=== PATIENT | female | born 1930 | race Caucasian/White ===

== ENCOUNTER → 2016-08-18 | Outpatient (CLI) | payer MEDICARE ==
[~2016-08-18] MED LIST: ALBUTEROL2.5 MG/0.5 INH; ALDACTONE25 MG PO; ARMOUR THYROID60 MG PO; ARMOUR THYROID90 MG PO; ASPIRIN LO-DOSE81 MG PO; B COMPLEX1 EACH PO; BACTROBAN N1 GM/TUBE TOP; BUMEX1 MG PO; CEFTIN250 MG PO; CLARITIN10 MG PO; CLEOCIN150 MG PO; CO Q-10200 MG PO; COLACE100 MG PO; COREG 3.1253.125 MG PO; COUMADIN ** IA3 MG PO; COUMADIN 4MG **4 MG; COUMADIN3 MG PO; COZAAR50 MG PO; DAILY VITE1 EACH PO; DEMADEX20 MG PO; DURAGESIC 50MC50 MCG TRANS; ESSENTIAL DAIL1 EACH PO; FEOSOL325 MG PO; FLORAJEN3 CAPS460 MG PO; FLORINEF0.1 MG PO; GUAIFENESIN400 MG PO; HYDROCODON-ACE1 EAC4 PO; IMDUR30 MG PO; KEFLEX500 MG PO; KLOR-CON SPRIN10 MEQ PO; KLOR-CON20 MEQ; LABETALOL HCL100 MG PO; LACTINEX (FLORA1 TAB PO; LEVAQUIN 250 M250 MG PO; LEVO-T125 MCG PO; LIPITOR80 MG PO; LOPRESSOR25 MG; MAGNESIUM400 M1 PO; MAGNESIUM400 MG PO; MILK OF MA400 MG/5 M PO; MIRALAX17 GM PO; MYCOSTATIN(NYST15 GM TOP; NITROSTAT0.4 MG PO; NITROSTAT0.4 MG SL; NYSTOP60 GM TOP; PAIN RELIEF650 MG PO; RANEXA ER500 MG PO; RANEXA1000 MG PO; TESSALON PERLE100 MG PO; THYROID PO; TRANDATE OR NO100 MG; TRANDATE300 MG PO; XANAX0.25 MG PO; ZAROXOLYN2.5 MG PO; ZOFRAN8 MG PO; ZYLOPRIM100 MG PO
== END | disposition disaster alternative care site (69) ==
LOC: GRAD 09:35
DX: C67.9 Malignant neoplasm of bladder, unspecified (principal); Q61.02 Congenital multiple renal cysts; I71.4 Abdominal aortic aneurysm, without rupture; J98.11 Atelectasis; I51.7 Cardiomegaly; Z98.890 Other specified postprocedural states

== ENCOUNTER → 2016-12-23 | Outpatient (CLI) | payer MEDICARE | END | disposition disaster alternative care site (69) | LOC: GAMB 06:17 | DX: R07.9 Chest pain, unspecified (principal); J44.9 Chronic obstructive pulmonary disease, unspecified; I51.9 Heart disease, unspecified; I48.91 Unspecified atrial fibrillation; R06.02 Shortness of breath; Z79.899 Other long term (current) drug therapy; Z88.2 Allergy status to sulfonamides; Z88.5 Allergy status to narcotic agent | CPT/HCPCS: A0422; A0425; A0427; J2405; J7030 ==